=== PATIENT | male | born 1945 | race Caucasian/White ===

== ENCOUNTER → 2018-11-10 14:08 | Outpatient (CLI) | payer MEDICARE, OTHER, SELFPAY ==
--- NOTE | 2018-11-10 | DI.MRI.S_ITS ---
PROCEDURE: MR HIP RT WO CON INDICATIONS: Pain in right hip TECHNIQUE: Noncontrast coronal T1 spin echo and STIR through the bony pelvis. Coronal and axial T2 fast spin echo with fat saturation, sagittal T1 spin echo, and oblique axial T2 fast spin echo with fat saturation through the hip. COMPARISON: None. FINDINGS: Image quality: Excellent. Bones and joints: Bone marrow of the pelvic ring and proximal femurs show normal signal throughout. No intraosseous lesions or fractures. No avascular necrosis of the femoral heads. The visualized lower lumbar spine appears normally aligned. Tendons and ligaments: The gluteus medius and minimus tendons appear intact, without associated muscle atrophy. The nearby proximal iliotibial band also appears intact. The iliopsoas tendon appears intact, without adjacent bursal fluid collections or evidence for impingement syndrome. The origin of the hamstring tendon is intact at the ischial tuberosity, as well as the associated sacrotuberous ligament. The straight and reflected heads of the rectus femoris muscle origin appear intact, as well as the conjoint tendon. The ligamentum teres appears intact where visualized. Labrum and cartilage: The acetabular labrum appears intact in the absence of intra-articular contrast. Cartilage surface of the femoral head appears of only slightly reduced thickness. The alpha angle of the femur is within normal limits at less than 55 degrees. Soft tissues: Visualized muscles demonstrate normal bulk and internal signal. Quadratus femoris muscle demonstrates no internal edema to suggest ischiofemoral impingement. The proximal sciatic neurovascular bundle appears normal adjacent to the hamstring tendons. No free pelvic fluid. Bladder wall thickness is normal. Genitourinary structures and bowel loops appear normal where visualized. Note is made of a mild excess of bursal fluid at the greater trochanteric bursa on the right, best seen on axial image 17 from series 4, measuring up to 1.9 cm in maximal dimension. IMPRESSION: 1. No abnormal joint effusion are suspected intra-articular loose body as cause of right hip pain. 2. 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 This is not the likely cause for current symptomatology. 3. In the pelvis through the area of the lumbosacral plexus no inflammation or impingement on the normal neural structures are found. Referred pain from nerve root impingement is not suspected. 4. Focal greater trochanteric bursitis appears present producing elevated fluid signal at the bursal margins in an area measuring up to 1.9 cm in dimension. This is considered a probable cause for right hip joint pain. Dictated by: Klever Baeza M.D. on 11/10/2018 at 15:45 Approved by: Klever Baeza M.D. on 11/10/2018 at 15:51
== END ==
PROVIDERS: PCP Family Medicine; Visit Provider Neurological Surgery
DX: M25.551 Pain in right hip (principal)
CPT/HCPCS: 73721

== ENCOUNTER → 2020-04-09 09:40 | Outpatient (CLI) | payer MEDICARE, OTHER, SELFPAY ==
--- NOTE | 2020-04-09 | DI.CT.S_ITS ---
PROCEDURE: CT KIDNEY URETER BLADDER (KUB) INDICATIONS: PROSTATE CA TECHNIQUE: Noncontrast 5 mm thick sections acquired from the diaphragms to the symphysis. 5 mm thick coronal and sagittal reformats were then performed. For radiation dose reduction, the following was used: automated exposure control, adjustment of mA and/or kV according to patient size. COMPARISON: [facility], MR, MR HIP RT WO CON, 11/10/2018, 14:28. [facility], NM, NM BONE SCAN WHOLE BODY, 04/09/2020, 13:02. FINDINGS: Image quality: Excellent. Lung bases: Lung bases are clear. Heart size is normal. There is a small right-sided fat and fluid containing paraesophageal hernia. Urinary system: Both kidneys are normal in size. No kidney stones. No hydronephrosis or perinephric fat stranding. Both ureters appear non-dilated throughout their expected courses. Bladder wall thickness is normal; no calcified bladder stones. Other solid organs: Liver is normal in size. Trace sludge is layered in the gallbladder fundus. No gallbladder wall thickening or pericholecystic fluid. Pancreas is normal in contours. Spleen is normal in size. A small splenule is present adjacent to the spleen. No adrenal nodules. Peritoneum and bowel: Unenhanced bowel loops demonstrate normal wall thickness and caliber. The appendix is thin walled and gas filled. No free fluid or air. Nodes and vessels: No retroperitoneal or mesenteric adenopathy by size criteria. Aorta and inferior vena cava are normal in caliber. There are scattered atheromatous calcifications throughout the aorta and iliac arteries bilaterally. Abdominal wall: No ventral hernias. Pelvis: No free pelvic fluid. No inguinal adenopathy. There are small bilateral fat containing inguinal hernias. Bones: A focal sclerotic lesion is present within the posterior right inferior obturator ring (series 4/image 55 and series 2/image 88). There is no definite focus of increased radiotracer uptake on the bone scan from the same date to suggest osteoblastic activity. Additionally, this was likely present in retrospect on the MRI dated November 10, 2018. There was no marrow edema associated with this lesion. No other suspicious bony lesions. IMPRESSION: 1. Focal sclerotic lesion within the right inferior obturator ring which is likely chronic in nature and does not demonstrate increased radiotracer uptake on the associated bone scan. 2. No other suspicious findings to suggest bony or soft tissue metastasis. 3. Aortic atherosclerosis. Normal appendix. 4. Fat and fluid containing hiatal hernia. Dictated by: Juany Garsia M.D. on 04/09/2020 at 14:52 Approved by: Juany Garsia M.D. on 04/09/2020 at 14:58
--- NOTE | 2020-04-09 | DI.NM.S_ITS ---
PROCEDURE: NM BONE SCAN WHOLE BODY RADIOPHARMACEUTICAL: 20.7 mCi Tc-99m MDP IV. INDICATIONS: NEOPLASM OF PROSTATE TECHNIQUE: Delayed whole-body scintigrams were obtained approximately 3-4 hours after intravenous injection of radiotracer. Anterior and posterior views were acquired from vertex to feet. COMPARISON: [facility], CT, CT KIDNEY URETER BLADDER (KUB), 04/09/2020, 9:48. [facility], CT, CT CHEST WITHOUT CONTRAST, 03/01/2020, 15:11. FINDINGS: No lesions are identified in skull, sternum, clavicles, scapulae, ribs, bony pelvis, and visualized shafts of the long bones. There is low level increased uptake in cervical, thoracic and lumbar spine with distribution indistinguishable from degenerative disc and facet disease; early metastasis to spine could be obscured by degenerative changes. There are foci of increased periarticular activity involving shoulders, sternoclavicular joints, wrists and knees, compatible with degenerative/arthritic changes. More intense uptake is noted in the left lateral femoral condyle. There is bladder distention, partially obscure pelvis. IMPRESSION: 1. No definitive scintigraphic findings to suggest osseous metastasis. 2. Foci of increased uptake in spine correlate with degenerative changes seen on the comparison CT. 3. Intense uptake is noted in the left lateral femoral condyle. Recommend radiographic correlation. 4. Bladder is distended suggesting bladder outlet obstruction. Dictated by: Daniel Sunshine M.D. on 04/09/2020 at 16:47 Approved by: Daniel Sunshine M.D. on 04/09/2020 at 17:38
== END ==
PROVIDERS: PCP Internal Medicine; Referring Provider Urology; Visit Provider Urology
DX: C61 Malignant neoplasm of prostate (principal); M89.9 Disorder of bone, unspecified; I70.0 Atherosclerosis of aorta; K44.9 Diaphragmatic hernia without obstruction or gangrene; N32.89 Other specified disorders of bladder
CPT/HCPCS: 74176; 78306; A9503

== ENCOUNTER → 2021-01-20 13:01 | Outpatient (CLI) | payer MEDICARE, OTHER, SELFPAY ==
--- NOTE | 2021-01-20 | DI.MRI.S_ITS ---
PROCEDURE: MR LUMBAR SPINE WO CON INDICATIONS: Other spondylosis, lumbar region TECHNIQUE: Noncontrast sagittal T1 spin echo and T2 fast echo, sagittal STIR, axial T1 and T2 fast spin echo through the lumbar spine. In cases with scoliosis, additional coronal T2 fast spin echo may be performed. COMPARISON: [facility], MR, MR LUMBAR SPINE WITHOUT CONTRAST, 08/04/2019, 14:07. [facility], MR, LUMBAR SPINE W/O CONTRAST, 11/10/2012, 11:15. [facility], NM, NM BONE SCAN WHOLE BODY, 04/09/2020, 13:02. [facility], CT, CT KIDNEY URETER BLADDER (KUB), 04/09/2020, 9:48. FINDINGS: Image quality: Excellent. Alignment and Curvature: Moderate dextroconvex scoliosis is seen. There is mild retrolisthesis seen at the L2-L3 level. Bone Marrow: Marrow is of normal overall signal. Scattered foci are seen, which are hyperintense on T1-weighted and T2-weighted imaging, which are most consistent with benign vertebral body hemangiomas. No acute vertebral body compression fractures. Spinal Cord: Conus medullaris terminates at the L1 level. Visualized cord demonstrates normal signal and size. Paraspinous Soft Tissues: No paravertebral masses. Postoperative changes are seen inferiorly, with removal of portions of the posterior elements. T12-L1: [id number] loss of disc height and disc signal can be seen. No significant neural foraminal or central canal narrowing can be seen. L1-L2: At least moderate loss of disc height and disc signal can be seen, which is worse on the left side. At least moderate disc bulge is seen, which is eccentric to the left. Prominent bridging endplate osteophytes are seen on the left, as on series 2, image 5. Mild to moderate facet hypertrophy is seen. There is mild right-sided and moderate left-sided neural foraminal narrowing seen. Mild central canal narrowing is seen. When comparison is made with the prior images, these findings are similar. L2-L3: Moderate to severe loss of disc height and disc signal can be seen on the left side. Reactive marrow endplate changes are seen, which are hyperintense on T1-weighted and T2-weighted imaging and most consistent with fatty metaplasia (Modic type II changes). At least moderate disc bulge is seen, which is eccentric to the left. Bridging endplate osteophytes are seen on the left, as on series 2 image 5 and on series 6, image 13. Moderate facet joint hypertrophy is seen. There is at least moderate left-sided and moderate right-sided neural foraminal narrowing seen. At least moderate central canal narrowing is seen, as on series 6, image 13. When comparison is made with the prior images, these findings are similar. L3-L4: The disc height is well-preserved. Loss of disc signal is seen at this level. Increased STIR signal can be seen along the central portion of this disc, as on series 5, image 9, which is more prominent on the current study than on the prior. At least moderate disc bulge is seen, which is eccentric to the right. At least moderate facet hypertrophy is seen. Fluid is seen within the facet joints themselves. There is moderate to severe bilateral neural foraminal narrowing seen at this level. There is a degree of compression seen upon the exiting nerve roots. No significant central canal narrowing is seen. The degree of central canal narrowing is clearly improved compared to 2020. L4-L5: The disc height is well-preserved. Loss of disc signal is seen at this level. Moderate disc bulge is seen, which is eccentric to the right. Reactive marrow endplate changes are seen which are hypointense on T1-weighted imaging and hyperintense on T2 weighted imaging, which is most consistent with edema (Modic type I changes). At least moderate facet hypertrophy is seen at this level. There is moderate to severe right-sided and at least moderate left-sided neural foraminal narrowing seen. There is a degree of compression seen upon the exiting nerve roots. No significant central canal narrowing is seen. The previously seen central canal narrowing has resolved. L5-S1: Moderate to severe loss of disc height and disc signal can be seen. Or fissure at least moderate disc bulge is seen, which is eccentric to the right. There is a central disc protrusion. At least moderate facet hypertrophy is seen at this level. There is moderate right-sided and no significant left-sided neural foraminal narrowing seen at this level. Mild central canal narrowing is seen. When comparison is made with the prior images, these findings are similar. IMPRESSION: Interval postoperative change, with removal of portions of the posterior elements inferiorly, with improvement in the degrees of central canal narrowing at L3-L4 and L4-L5. There is increased STIR signal seen along the L3-L4 disc, which is most likely degenerative in nature. There is also new endplate edema seen at this level. Differential diagnosis includes discitis, yet this is considered to be less likely. If clinically appropriate, please consider a follow-up MRI, performed with IV contrast. Dictated by: Valerio Bobo M.D. on 01/20/2021 at 13:47 Approved by: Valerio Bobo M.D. on 01/20/2021 at 13:54
== END ==
PROVIDERS: PCP Internal Medicine; Referring Provider Acupuncturist; Visit Provider Acupuncturist
DX: M47.896 Other spondylosis, lumbar region (principal); M48.061 Spinal stenosis, lumbar region without neurogenic claudication
CPT/HCPCS: 72148

== ENCOUNTER → 2024-04-11 13:30 | Outpatient (CLI) | payer MEDICARE, OTHER, SELFPAY | LOC: WC 05-19 09:02 | PROVIDERS: PCP Internal Medicine; Referring Provider Podiatrist; Visit Provider Surgery | DX: I87.2 Venous insufficiency (chronic) (peripheral) (principal) | CPT/HCPCS: 99203; 99212 ==